=== PATIENT | female | born 1950 | race Caucasian/White ===

== ENCOUNTER → 2020-07-21 09:08 | Outpatient (REF) | payer MEDICARE, SELFPAY | LOC: ANHLAB 09:08 | PROVIDERS: PCP Family Medicine; Visit Provider Nurse Practitioner | DX: L81.4 Other melanin hyperpigmentation (principal) | CPT/HCPCS: 88305 ==

== ENCOUNTER → 2022-05-31 16:33 | Outpatient (CLI) | payer MEDICARE, SELFPAY ==
--- NOTE | ~2022-05-31 | XR_ITS ---
EXAMINATION: XR ankle RT min 3V DATE: 05/31/2022 16:48 INDICATION: Sprain of unspecified ligament. Right ankle pain. TECHNIQUE: 4 views of right ankle were obtained. COMPARISON: None. FINDINGS: Bone alignment is normal. No fracture. Joint spaces are normal. There are enthesophytes at the posterior and plantar aspects of calcaneal tuberosity. There is ankle soft tissue swelling. IMPRESSION: 1. No fracture. Reviewed, dictated and finalized at location A. IMPRESSION: 1. No fracture.
== END ==
PROVIDERS: PCP Family Medicine; Visit Provider Family Medicine
DX: S93.409A Sprain of unspecified ligament of unspecified ankle, initial encounter (principal); M25.571 Pain in right ankle and joints of right foot; X58.XXXA Exposure to other specified factors, initial encounter
CPT/HCPCS: 73610

== ENCOUNTER → 2023-03-09 12:41 | Outpatient (CLI) | payer MEDICARE, SELFPAY ==
--- NOTE | ~2023-03-09 | XR_ITS ---
EXAMINATION: XR chest 2V 03/09/2023 13:17 INDICATION: Cough PROCEDURE: 2 view chest COMPARISON: 11/13/2018. FINDINGS: The lungs are clear. The cardiomediastinal silhouette is within normal limits. There are no pleural effusions. There is no pneumothorax suspected. IMPRESSION: 1: NO ACUTE CARDIOPULMONARY DISEASE. Reviewed, dictated and finalized at location L.
== END ==
PROVIDERS: PCP Family Medicine; Visit Provider Family Medicine
DX: R05.9 Cough, unspecified (principal)
CPT/HCPCS: 71046

== ENCOUNTER 2024-01-27 14:48 | Emergency (ER) | payer MEDICARE, SELFPAY ==
--- NOTE | ~2024-01-27 | XR_ITS ---
EXAMINATION: XR chest 2V DATE: 01/27/2024 15:54 INDICATION: Cough and fever. Breast cancer. TECHNIQUE: Frontal and lateral views of the chest were obtained. COMPARISON: Chest 2 views 03/09/2023 FINDINGS: There is no pneumonia, pleural effusion, or pneumothorax. The heart size is normal. IMPRESSION: 1. No acute cardiopulmonary disease. Reviewed, dictated and finalized at location E.
[2024-01-27 14:51] VITALS: BP 138/115; PULSE 93; RESP 18; TEMP 36.8; O2SAT 100
--- NOTE | 2024-01-27 16:30 | ED.URI ---
HPI - URI/Sore Throat General Chief Complaint: Upper Respiratory Infection Stated Complaint: Upper Respiratory Infection Time Seen by Provider: 01/27/24 16:30 Source: patient Mode of arrival: ambulatory Limitations: no limitations History of Present Illness HPI Narrative: Arina is a 73-year-old female patient presenting to the emergency room today with complaints of cough, feeling feverish, chest congestion, mild shortness of breath, head congestion nasal congestion, sinus pressure, right eye redness, sores on her upper lip, and overall fatigue. She reports the symptoms started around January 16. She went on a river cruise in [place] and when she returned on the she contacted her primary care doctor and he prescribed her acyclovir cream, cefdinir, and tobramycin eyedrops. She reports the eye is improving however she is feeling more fatigued and just keeps coughing. Reports that the nasal secretions and phlegm that she was coughing up was green in color. MD elicited complaint: sore throat and nasal congestion Related Data Home Medications Medication Instructions Recorded Confirmed letrozole 2.5 mg tablet 2.5 mg PO DAILY 12/28/21 03/28/23 alendronate 70 mg tablet 70 mg PO WEEKLY 05/31/22 03/28/23 Allergies Allergy/AdvReac Type Severity Reaction Status Date / Time No Known Allergies Allergy Verified 01/27/24 16:43 Review of Systems Review of Systems: Pertinent positives per HPI. Patient denies any rash, headache, visual changes, dizziness, chest pain, palpitations, nausea, vomiting, diarrhea, constipation, abdominal pain, or any urinary issues. [facility] Past Medical History Medical History Anemia Ankle sprain Bilateral cataracts Blood glucose elevated BMI 25.0-25.9,adult BMI 26.0-26.9,adult BMI 29.0-29.9,adult Colon cancer screening Cyst of finger Dermatitis Essential (primary) hypertension Finger deformity, acquired Gallstones Heart palpitations Incomplete tear of right rotator cuff Insomnia Lesion of skin of nose Need for pneumococcal 20-valent conjugate vaccination Neuropathy of right lower extremity Osteoarthritis, hand Overlapping toe, acquired Reactive depression Surgical History Surgical History History of cholecystectomy History of hysterectomy History of knee replacement Hx of foot surgery Family History Family History Sibling Hypertension Carcinoma of colon Mother Family history of congestive heart failure Patient's mother is Family history of osteoporosis Family history of congenital heart disease Family history of cardiovascular disease Father Patient's father is Family history of cardiovascular disease Acute myocardial infarction Social History Social History Smoking status: Never smoker Second hand tobacco smoke exposure: Yes Alcohol intake: current Substance use: never Substance use type: does not use Do You Feel Safe in your Home?: Yes Lack of Transportation: No Lack of Food: Never True Current Housing: I Have Housing Concerned About Future Housing: No Difficulty Paying Gas/Electric Bills: No Difficulty Paying for Meds: No Currently Unemployed: No Education: Trade/Vocational Certificate Difficulty w/ Childcare or Family Care: No Living arrangements: alone Occupation/Education: retired Additional occupation/education comments: [employer]. Gender identity (if verbalized by the patient): Female Comments At the time of my signature, I reviewed and agree with the nursing past medical, surgical, social, and family history. There is no relevant family history pertinent to the patient complaint. Exam Narrative: General: Well-developed, well nourished, in no apparent dist
[2024-01-27 17:24] LABS: Basophils Percent Auto 0.4 % (0.2-1.2); Eosinophils Absolute Auto 0.1 K/mm3 (0-0.3); Eosinophils Percent Auto 1.4 % (0-4.4); Hematocrit 37.6 % (37.0-47.0); Hemoglobin 12.5 g/dL (12.0-15.0); Immature Granulocyte Absolute 0.12 K/mm3 (0.00-0.031); Immature Granulocyte Percent A 1.3 % (0-0.5); Lymphocytes Percent Auto 12.7 % (18.3-44.2); Mean Corpuscular HGB Conc 33.2 g/dl (32-36); Mean Corpuscular Hemoglobin 30.4 pg (26-34); Mean Corpuscular Volume 91.5 fl (80-100); Mean Platelet Volume 9.6 fl (7.4-10.4); Monocytes Absolute Auto 0.8 K/mm3 (0.1-0.6); Monocytes Percent Auto 8.1 % (2.6-8.5); Neutrophils Absolute Auto 7.2 K/mm3 (1.3-6.7); Neutrophils Percent Auto 76.1 % (45.5-73.1); Platelet Count Result 230 k/mm3 (150-375); Red Blood Count 4.11 M/mm3 (4.2-5.4); Red Cell Distribution Width 13.6 % (11.5-14.5); White Blood Count 9.5 K/mm3 (4.5-10.0)
[2024-01-27 17:25] LABS: Appearance Urine Clear (Clear); Bilirubin Urine Negative (Negative); Blood Urine Negative (Negative); Color Urine Yellow (Yellow); Glucose Urine UA Negative (Negative); Ketones Urine Negative (Negative); Leukocyte Esterase Ur Negative LEU/UL (Negative); Nitrate Urine Negative (Negative); Protein Urine Negative (Negative); Specific Grav Ur 1.013 (1.001-1.035); Urobilinogen Urine 0.2 mg/dL (<2.0); pH Urine 6.5 (5.0-9.0)
[2024-01-27 17:36] LABS: Add Urine Microscopic? NO
[2024-01-27 17:36] LABS: Influenza A QL RT-PCR Negative (Negative); Influenza B QL RT-PCR Negative (Negative); RSV RNA, RT-PCR Negative (Negative); SARS-CoV-2 RNA PCR Negative (Negative)
[2024-01-27 17:46] LABS: Alanine Aminotransferase 22 U/L (6-35); Alkaline Phosphatase 84 U/L (38-126); Anion Gap 9 mmol/L (4-12); Aspartate Amino Transferase 26 U/L (14-36); Bilirubin,Total 0.8 mg/dL (0.2-1.3); Blood Urea Nitrogen 9 mg/dL (7-17); Calcium 9.3 mg/dL (8.4-10.2); Carbon Dioxide 28 mmol/L (22-30); Chloride 100 mmol/L (98-107); Estimated CRCL calculation 69 ml/min; Estimated Glomerular Filt Rate > 60; Glucose 129 mg/dL (65-110); Potassium 2.9 mmol/L (3.4-5.0); Sodium 137 mmol/L (137-145)
[2024-01-27] MEDS: POTASSIUM CHLORIDE 20 MEQ PACKET (FOR LIQUID) 40 MEQ PO (18:13)
[2024-01-27 18:18] VITALS: BP 135/95; PULSE 80; RESP 22; O2SAT 95
== END 2024-01-27 18:19 | disposition home or self-care (01) ==
PROVIDERS: Emergency Provider Nurse Practitioner Family; PCP Family Medicine
DX: J01.90 Acute sinusitis, unspecified (principal); B96.89 Other specified bacterial agents as the cause of diseases classified elsewhere; H10.89 Other conjunctivitis; E87.6 Hypokalemia; Z20.822 Contact with and (suspected) exposure to COVID-19; I10 Essential (primary) hypertension; M19.049 Primary osteoarthritis, unspecified hand; G62.9 Polyneuropathy, unspecified; Z96.659 Presence of unspecified artificial knee joint; Z86.2 Personal history of diseases of the blood and blood-forming organs and certain disorders involving the immune mechanism; Z90.49 Acquired absence of other specified parts of digestive tract; Z90.710 Acquired absence of both cervix and uterus
CPT/HCPCS: 36415; 71046; 80053; 81003; 85025; 87637; 99283; A9270

== ENCOUNTER → 2024-02-19 13:14 | Outpatient (REF) | payer MEDICARE, SELFPAY | LOC: ANHLAB 13:14 | PROVIDERS: PCP Family Medicine; Visit Provider Plastic Surgery | DX: R22.32 Localized swelling, mass and lump, left upper limb (principal) | CPT/HCPCS: 88305 ==

== ENCOUNTER 2024-02-27 14:44 | Outpatient (CLI) | payer MEDICARE, SELFPAY ==
--- NOTE | ~2024-02-27 | CT_ITS ---
CT Scan of the Chest without Contrast: Clinical Indication: Chronic cough Technique: Contiguous sections were acquired throughout the chest without intravenous contrast. Dose reduction technique was used on this scan by utilizing automated exposure control and iterative recon struction technique. The dose-length product (DLP) was 152.49 mGy-cm. Findings: There is no evidence of any significant mediastinal, hilar or axillary lymphadenopathy. The mediastin al soft tissues appear normal. There is no evidence of pleural or pericardial effusion. The lungs are clear. No pulmonary nodules or infiltrates are noted. Images through the upper abdomen reveal no abnormalities. There is focal distortion with associated i rregular density in the right breast, suggestive of postoperative change. Impression: No pulmonary abnormality evident. Focal distortion with irregular density in the right breast, suggestive of postoperative change. Silver elate with relevant clinical history and any prior mammography. Recommend mammographic workup if ther e is no history of right breast surgery. Reviewed, dictated and finalized at [facility]. Impression: No pulmonary abnormality evident. Focal distortion with irregular density in the right breast, suggestive of post operative change. Correlate with relevant clinical history and any prior mammog mary. Recommend mammographic workup if there is no history of right breast nils regina.
== END 2024-02-27 14:45 | disposition home or self-care (01) ==
LOC: ANHIMG 14:45
PROVIDERS: PCP Family Medicine; Visit Provider Nurse Practitioner Family
DX: R05.3 Chronic cough (principal)
CPT/HCPCS: 71250

== ENCOUNTER 2025-10-04 10:36 | Outpatient (CLI) | payer MEDICARE, SELFPAY ==
--- NOTE | ~2025-10-04 | XR_ITS ---
XR wrist LT min 3V 10/04/2025 10:59 Indication: Left wrist pain Procedure: 4 views left wrist Comparison: No prior studies for comparison. Findings: Severe polyarticular osteoarthritis most advanced at the triscaphe, first carpal metacarpal and metacarpal phalangeal joints. Osteopenia. No acute fracture or traumatic malalignment. 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 Reviewed, dictated and finalized at location O. 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
--- NOTE | ~2025-10-04 | XR_ITS ---
XR wrist RT min 3V 10/04/2025 10:59 Indication: Right wrist pain Procedure: 4 views right wrist Comparison: No prior studies for comparison. Findings: Severe polyarticular osteoarthritis most advanced at the triscaphe, first carpal metacarpal and metacarpal phalangeal joints. Osteopenia. No acute fracture or traumatic malalignment. There is an old ulnar styloid fracture. Impression: 1: Severe polyarticular osteoarthritis of the right wrist. Reviewed, dictated and finalized at location O. EL [employer]INE [employer]SEM[employer]ER Impression: 1: Severe polyarticular osteoarthritis of the right wrist.
== END 2025-10-04 10:37 | disposition home or self-care (01) ==
PROVIDERS: PCP Family Medicine; Visit Provider Family Medicine
DX: M25.531 Pain in right wrist (principal); M25.532 Pain in left wrist
CPT/HCPCS: 73110